=== PATIENT | female | born 1940 | race Caucasian/White ===

== ENCOUNTER 2024-10-30 07:30 | Observation (INO) | payer MEDICARE, OTHER ==
[2024-10-19 10:39] LABS: MEAN PLATELET VOLUME 7.7 FL (7.4-10.4); PRE OP HEMATOCRIT 41.6 % (35.0-45.0); PRE OP HEMOGLOBIN 14.0 g/dL (12.0-16.0); PRE OP PLATELET COUNT 242 X10'3 (140-440); PRE OP WHITE BLOOD COUNT 8.1 10'3 (4.8-10.8); RED CELL DISTRIBUTION WIDTH 14.5 % (11.5-14.5)
[2024-10-19 11:06] LABS: CREATININE 1.05 MG/DL (0.40-0.90); PRE OP ALT 15 U/L (30-65); PRE OP ANION GAP 13 (8-16); PRE OP AST 16 U/L (10-37); PRE OP BILIRUB, TOTAL 0.5 MG/DL (0.0-1.0); PRE OP GLUCOSE 122 MG/DL (70-104); PRE OP SODIUM 141 MMOL/L (135-145); TOTAL CARBON DIOXIDE 24.2 MMOL/L (24-32); eGFR 50 ML/MIN
[2024-10-19 11:09] LABS: PRE OP POTASSIUM 3.3 MMOL/L (3.4-5.1)
[2024-10-30] VITALS (27 sets, daily range): BP systolic 109–189; BP diastolic 57–97; PULSE 54–63; RESP 12–18; TEMP 97.6–98.1; O2SAT 93–100
[~2024-10-30] VITALS: Ht 170.2 cm; Wt 86.2 kg
[2024-10-30] MEDS: MESSAGE TO NURSING PO ONE (05:30)
[2024-10-30] MEDS: ringers solution, lacted 1,000 ML IV SCH ×3 (05:30→14:54)
[~2024-10-30 07:30] MED LIST: CHOL100046 PO; LISI1TAB53 PO; PROP80TA4 PO; SERT25TA PO; SYN0.112T PO
[2024-10-30] MEDS: DOCUMENT DATE & TIME OF BETA-BLOCKER PO ONE (08:31)
[2024-10-30] MEDS: ceFAZolin 2gm/dext,iso 50mL 50 ML IV ONE (08:31)
[2024-10-30] MEDS ORDERED: morphine 4 MG/ML inj SYRINge IV PRN (09:05)
[2024-10-30] MEDS ORDERED: HYDROmorphone/PF 0.2 MG/ML SYRINGE IV PRN ×2 (09:05)
[2024-10-30] MEDS ORDERED: labetalol 20mg/4ml (5mg/ml) syringe IV PRN (09:05)
[2024-10-30] MEDS ORDERED: acetaminophen 1,000mg/100ml IV 100 ML IV PRN (09:05)
[2024-10-30] MEDS ORDERED: ondansetron/PF 4mg/2ml inj IV PRN (09:05)
[2024-10-30] MEDS ORDERED: ROPIVAcaine 0.5% (5mg/ml) 30ml vial ONE ×2 (09:21→10:47)
[2024-10-30] MEDS ORDERED: BUPIVACAINE/MELOXICAM 14 ML VIAL IL ONE (09:22)
[2024-10-30] MEDS ORDERED: midazolam 1 mg/ML 2ml injection ONE (09:36)
[2024-10-30] MEDS ORDERED: fentaNYL/PF 50MCG/1 ML 2ML syringe ONE (09:36)
[2024-10-30] MEDS: VANCOMYCIN/H2O 1.5g/300mL PB 300 ML IV ONE (09:40)
[2024-10-30] MEDS ORDERED: magnesium hydroxide 30ml (MOM) UD suspension PO PRN (09:40)
[2024-10-30] MEDS ORDERED: PCA WASTE DOCUMENTATION 1 MG ML MC SCH (09:40)
[2024-10-30] MEDS ORDERED: bisacodyl 10mg suppository rectal RC PRN (09:40)
[2024-10-30] MEDS: BUPIVACAINE/MELOXICAM 14 ML VIAL IL ONE (10:29)
[2024-10-30] MEDS ORDERED: propofol inj 20 ML IV ONE ×2 (10:47→11:21)
--- NOTE | 2024-10-30 12:10 | OPERATIVE REPORT ---
Operative Report Operative Report OPERATIVE REPORT [facility] [address] [place] [address] Date of service: October 30, 2024 PREOPERATIVE DIAGNOSIS M17.715.16 Unilateral primary osteoarthritis, right knee [id number] Valgus deformity, not elsewhere classified, right knee POSTOPERATIVE DIAGNOSIS [id number] Unilateral primary osteoarthritis, right knee [id number] Valgus deformity, not elsewhere classified, right knee Operation Performed [id number] Total Knee Arthroplasty with this modifier: RT [id number] Computer Assisted Navigation Musculoskeletal - Imageless Procedure: Computer-assisted, robotically-assisted, right total knee arthroplasty. Surgeon: Dr. Bernardo Anderson Design Engineering Technician: Sandra Valencia PA-C Anesthesiologist: Dr. Dotson Anesthesia: Spinal anesthetic and regional blocks Indications: 84-year-old female who has chronic osteoarthritis of the right knee with severe pain and limitation of activities despite extensive non-operative management. This patient has had extensive conservative treatment of knee joint arthritis, including rest, external joint support, anti- inflammatory medications, physical therapy, and corticosteroid injection. Physical therapy has been provided, along with a home exercise program prior to making the decision to proceed with surgical treatment. This therapeutic intervention did not provide any substantial relief of symptoms or improvement in function. The patient has been utilizing a cane, set of crutches, or walker, for more than 3 months prior to deciding to proceed with surgery. These interventions have not provided sufficient relief of pain to allow improvement in function. The patient has utilized non-steroidal anti-inflammatory medications for relief of pain over an extended period of time (more than 2 months), and has not experienced sufficient improvement in symptoms. Despite these treatments, this patient has continued difficulties with pain and limited function. They are unable to walk long distances, do vigorous activities, sit or sleep comfortably. Total knee replacement is the next reasonable step in terms of treatment. Indications for podiatry assistant surgeon: A second set of skilled hands with specific orthopedic knowledge of the surgical procedure and orthopedic surgical techniques was necessary to accomplish this operation successfully, and with the least amount of morbidity for the patient. This facilitated operative exposure, manipulation and handling of tissues, placement of any implants, and acc omplishment of wound closure. Findings: There was indeed a very severely arthritic knee, with loss of cartilage, exposed bone, and marginal osteophytes. The lateral compartment was particularly bad. A 8 valgus deformity and 5 degree flexion contracture were measured preoperatively. Post operative alignment was 0 varus, and 1 degree extension. Complications: None Estimated Blood Loss: 150 mL Implants: A [employer]ryan Persona CR total knee system was utilized with a size eight right cemented femoral component, and a size F right cemented tibial smart stem. The 13 mm medial congruent right tibial insert was utilized. The [employer] robotically assisted total knee arthroplasty system and computer was utilized. Procedure: The risks, benefits, expected results, and possible complications of the planned procedure had been explained to the patient and informed consent obtained. The patient was taken to the operating room and underwent a spinal anesthetic. The patient was placed in the supine position on the operating table, and the right leg was prepped and draped in the usual fashion. A timeout was taken prior to surgery, confirming patient identification, operative side operative site, planned procedure, administration of pre-operative antibiotics, site marking, and presence of all necessary implants and instruments, x-rays and equipment. A standard anterior, slightly medial approach was performed with a medial parapatellar arthrotomy, and a VMO split. Time was then spent removing excessive synovial tissue and exposing the medial and lateral gutters, as well as moving the anterior sections of the residual menisci. The patella was mobilized to be able to be retracted laterally. This gave exposure of the anterior aspect of the knee. Attention was then directed to the patella. The patella was in excellent condition so we decided not to resurface the patella. Infrared arrays were then placed on the femur and the tibia. Utilizing the [employer] computer system, the hip, knee, and ankle were landmarked in usual fashion. The initial alignment measurements were then taken confirming the above listed deformity. Surgical planning was then carried out on the computer, confirming alignment of components, sizing, and gap balancing. Appropriate soft tissue releases were performed. The robot was then utilized to make the distal femoral cut. The femur was prepared in 4 degrees of flexion and neutral coronal alignment. The distal femoral 4 in 1 block was placed with the robot, and the remaining femoral cuts also performed. The robot was then utilized to cut the proximal tibia in 5 degrees of flexion and neutral coronal alignment. The computer was then ut ilized to check longitudinal alignment and soft tissue balance, and this confirmed excellent alignment. Next the dynamic balancing block was utilized to check and adjust soft tissue balancing. The trial implant was sized and properly rotated, and the peg drilling performed. Final check of alignment and balancing was then carried out with trials in place, as well as final removal a nd cleaning up of soft tissue such as meniscal remnants and osteophytes. A tourniquet was inflated to 300 mmHg after exsanguination of the leg with an Esmarch. Cement was then mixed; 2 batches were utilized, mixed together, for the tibia, the femur and the patella. The cut surface of the tibia was thoroughly lavaged with the pulsating lavage and then dried. The tibia was impacted with the mallet, seating it quite nicely in its proper rotational alignment. Excess cement was removed from around the margins. The femoral cuts were cleaned with a pulsating lavage and then dried with the lap sponges, and the femur was impacted into position with a mallet. Excess cement was removed around the margins of the components as the cement cured. Pressure was held on the femoral component and tibia by placing a spacer and bringing the leg to full extension and applying axial and hyperextension force. Upon complete hardening of all cement, the knee was inspected and excess cement removed. We lavaged the knee to wash out any debris and checked to make sure we had no impinging cement. The trial spacer was replaced and overall alignment checked with computer, ensuring we had full extension of the knee, and appropriate medial and lateral soft tissue balance, as well as flexion and extension balance. The tourniquet was deflated and hemostasis obtained with electrocautery. Tourniquet time was 10 minutes. The wound was irrigated thoroughly one more time and then dried with lap sponges. The final tibial spacer was impacted and locked into the locking mechanism without difficulty. I lavaged the knee to wash out any debris. The tibial trial spacer was replaced and overall alignment checked with computer, ensuring we had full extension of the knee, and appropriate medial and lateral soft tissue balance, as well as flexion and extension balance. The wound was irrigated thoroughly one more time and then dried with lap sponges. The final tibial spacer was impacted and locked into the locking mechanism without difficulty. The retinacular incision was closed with #2 Quill suture, and subcutaneous tissue closed with #2-0 Vicryl suture. Skin was closed with 4-0 Monocryl suture. A sterile dressing was applied, and the patient was returned to the recovery room in satisfactory condition. Electronically Signed by: Bernardo Anderson MD Doctor, Orthopedic Surgery Signed on: 10/30/2024 12:08 PM BERNARDO ANDERSON MD Oct 30, 2024 12:10
[2024-10-30] MEDS: hydrALAZINE 20mg/ml inj. IV PRN (12:14)
[2024-10-30] MEDS: potassium cl 20mEq in 1/2 NS 1,000 ML IV SCH (16:19)
[2024-10-30] MEDS: ceFAZolin/D5W- 1GM premix 50 ML IV SCH (16:24)
[2024-10-30] MEDS: vancomycin/NS 1 GM ADD-VANTAGE 250 ML IV SCH (20:53)
[2024-10-31 02:00] VITALS: BP 127/58; PULSE 55; RESP 15; TEMP 98.3; O2SAT 95
[2024-10-31] MEDS: oxyCODONE IR 5mg (immed. release) tablet PO PRN (05:39)
[2024-10-31 05:56] LABS: MEAN PLATELET VOLUME 8.0 FL (7.4-10.4); RED CELL DISTRIBUTION WIDTH 14.6 % (11.5-14.5)
[2024-10-31 06:00] VITALS: BP 130/91; PULSE 60; RESP 16; TEMP 98.1; O2SAT 94
[2024-10-31 06:11] LABS: TOTAL CARBON DIOXIDE 24.5 MMOL/L (24-32)
[2024-10-31] MEDS: cholecalciferol (vitamin D3) 1,000 unit (25mcg) tablet PO SCH (07:24)
[2024-10-31] MEDS: levoTHYROXINE 112mcg tablet PO SCH (07:28)
[2024-10-31 07:29] VITALS: BP 142/72; PULSE 61
[2024-10-31] MEDS: ondansetron/PF 4mg/2ml inj IV PRN (09:45)
[2024-10-31 10:00] VITALS: BP 116/44; PULSE 53; RESP 16; TEMP 98.4; O2SAT 96
--- NOTE | 2024-10-31 10:46 | DISCHARGE SUMMARY ---
Discharge Summary [facility]o [facility] ~ Discharge Summary *Problems/Diagnosis: (1) Osteoarthritis of right knee Status: Chronic Admission Diagnosis: Osteoarthritis Discharge Diagnosis\Comment: o Operations\Procedures o Consultants: o Complications: o Condition on DC: Stable Discharge Summary: o Medications Home Meds: Home Medications Active Reported Lisinopril-Hctz 20-25 mg Tab (Lisinopril/Hydrochlorothiazide) 20 Mg-25 Mg Tablet 1 Tab PO DAILY 30 Days Propranolol Hcl 80 Mg Tablet 1 Tab PO Q12H 30 Days Vitamin D3 (Cholecalciferol (Vitamin D3)) 25 Mcg (1000 Unit) Capsule 1 Cap PO DAILY Zoloft* (Sertraline HCl) 25 Mg Tablet 75 Mg PO DAILY Synthroid (Levothyroxine Sodium) 112 Mcg Tab 1 Tab PO DAILY Problem Qualifiers (1) Osteoarthritis of right knee: Qualified Codes: M17.11 - Unilateral primary osteoarthritis, right knee ASHLEY BEATTY MD Oct 31, 2024 10:46
--- NOTE | 2024-10-31 10:48 | DISCHARGE SUMMARY ---
Discharge Summary [facility]o [facility] ~ Discharge Summary Discharge Date: Oct 31, 2024 *Problems/Diagnosis: (1) Osteoarthritis of right knee Status: Chronic Admission Diagnosis: Osteoarthritis Discharge Diagnosis\Comment: same Operations\Procedures R TKA Consultants: none Complications: none Condition on DC: Stable Discharge Summary: On the day of admission the patient underwent a right TKA. She toerated this procedure well and was discharged to home the following day Medications Home Meds: Home Medications Active Reported Lisinopril-Hctz 20-25 mg Tab (Lisinopril/Hydrochlorothiazide) 20 Mg-25 Mg Tablet 1 Tab PO DAILY 30 Days Propranolol Hcl 80 Mg Tablet 1 Tab PO Q12H 30 Days Vitamin D3 (Cholecalciferol (Vitamin D3)) 25 Mcg (1000 Unit) Capsule 1 Cap PO DAILY Zoloft* (Sertraline HCl) 25 Mg Tablet 75 Mg PO DAILY Synthroid (Levothyroxine Sodium) 112 Mcg Tab 1 Tab PO DAILY Problem Qualifiers (1) Osteoarthritis of right knee: Qualified Codes: M17.11 - Unilateral primary osteoarthritis, right knee ASHLEY BEATTY MD Oct 31, 2024 10:48
[2024-10-31 11:32] VITALS: BP 129/96; PULSE 87
[2024-11-02] MEDS ORDERED: IBUP600T52 PO (21:12)
[2024-11-02] MEDS ORDERED: OXYC-658 (21:12)
== END 2024-10-31 13:00 | disposition home or self-care (01) ==
LOC: PAS IN 08:10 → INTOOBSV 08:10 → ORTHO 4S 13:01
PROVIDERS: ADMIT Orthopaedic Surgery; ATTEND Orthopaedic Surgery
DX: M17.11 Unilateral primary osteoarthritis, right knee (principal); M25.561 Pain in right knee; M21.061 Valgus deformity, not elsewhere classified, right knee; Z79.899 Other long term (current) drug therapy; Z98.890 Other specified postprocedural states
CPT/HCPCS: 36415; 80051; 80053; 82948; 85025; 87081; 96365; 96366; 96367; 97110; 97116; 97162; A4215; A6213; A6449; A7000; C1713; C1776; C9088; G0378; J0360; J0690; J2250; J2405; J2704; J2795; J3010; J3373; J3375; J3480; J7120